=== PATIENT | female | born 2000 | race Caucasian/White ===

== ENCOUNTER 2019-07-08 19:39 | Day surgery (SDC) | payer OTHER ==
[2019-07-08 20:17] VITALS: BP 121/78; TEMP 97.8; BMI 22.6
--- NOTE | 2019-07-09 07:22 | SS ---
DATE OF ADMISSION: 07/08/2019 DATE OF DISCHARGE: 07/08/2019 REGULAR PROVIDER: Shanae Bryson, certified nurse-hyperbaric welder diver. EVALUATING PHYSICIAN: Artie Turpin MD CHIEF COMPLAINT: Contractions at home. HISTORY OF PRESENT ILLNESS: Ms. Solo is a 18-year-old white G1, P0 with an estimated date of confinement of 07/20/2019, who presents complaining of regular contractions at home since noon approximately every 4-8 minutes. She denies ruptured membranes or vaginal bleeding. Her care has been with Shanae Bryson and has been without complications. During her exam last week, she was noted to be 3 cm. PAST MEDICAL HISTORY: None. PAST SURGICAL HISTORY: Tonsillectomy and adenoidectomy as a child. CURRENT MEDICATIONS: vitamins. ALLERGIES: NO KNOWN ALLERGIES. SOCIAL HISTORY: Denies tobacco, alcohol, or drug use. FAMILY HISTORY: Unremarkable. REVIEW OF SYSTEMS: Denies nausea, vomiting, fever, chills, ruptured membranes, or vaginal bleeding. PHYSICAL EXAMINATION: VITAL SIGNS: In triage, her vital signs are stable and she is afebrile. GENERAL: She is pleasant. She is in no acute distress. ABDOMEN: Soft, nontender, and gravid. Examination by the labor nurse shows the cervix to be 3 cm dilated, 75% effaced with the vertex presenting at -2 station. heart rate tracing is stable. Irregular uterine contractions are seen. ASSESSMENT: 1. A 38-week intrauterine . 2. Possible prodromal labor, no evidence of active labor at this time. PLAN: The patient was given labor precautions and these were reviewed with her in detail. She was told to return should her contractions become stronger or if she ruptures her membranes. She understands all the above and is headed home in good condition. Job ID: [id number]
== END 2019-07-08 21:13 | disposition home health service (06) ==
LOC: L&D/OP 19:39
PROVIDERS: ATTEND Student in an Organized Health Care Education/Training Program
DX: O47.1 False labor at or after 37 completed weeks of gestation (principal); Z3A.38 38 weeks gestation of pregnancy

== ENCOUNTER 2019-07-09 00:42 | Inpatient (IN) | payer OTHER ==
[2019-07-09] MEDS ORDERED: hydrALAZINE 20 MG/ML VIAL SLOW IVP PRN ×2 (01:16→12:55)
[2019-07-09] MEDS ORDERED: Lidocaine 1% (PF) 30 ML VIAL SC PRN (01:16)
[2019-07-09] MEDS ORDERED: Acetaminophen/Codeine 30-300mg Tablet PO PRN ×4 (01:16→18:24)
[2019-07-09] MEDS ORDERED: Promethazine HCl 25 MG/ML VIAL IM PRN ×2 (01:16→03:37)
[2019-07-09] MEDS ORDERED: Ibuprofen 800 MG TAB PO PRN (01:16)
[2019-07-09] MEDS ORDERED: Ondansetron PF 4 MG/2 ML Vial IVP PRN ×2 (01:16→03:37)
[2019-07-09] MEDS ORDERED: Butorphanol Tartrate 1 MG/ML VIAL SLOW IVP PRN (01:16)
--- NOTE | 2019-07-09 01:21 | PDOC.LDHP ---
Labor and Delivery H&P Chief complaint: contractions HPI: 18 yo WF returns c/o increasing UCs since noon today. Denies SROM or bleeding. Current gestational age (weeks): 38 Due date: 07/20/19 Dating criteria: last menstrual period Grav: 1 Para: 0 OB History Details: PNC with Adriana Bryson w/o complications. Current complications: none Abnormal US findings: No Past Medical History: None Current medications: pre- vitamins Previous surgical history: other (T&A) Allergies/Adverse Reactions: Allergies Allergy/AdvReac Type Severity Reaction Status Date / Time No Known Allergies Allergy Verified 07/08/19 20:11 Social history: none - Physical Exam Vital signs reviewed and normal: yes General: breathing through contractions Heart: RRR Lungs: CTAB Abdomen: gravid Extremeties: trace edema FHT: category 1 [place] contractions every: q 2-3 mins - Vaginal Exam cm dilated: 4 Effacement: 90% Station: -1 - OB Labs GBS: positive - Assessment L&D Assessment: term patient in labor - Plan Plan: admit to L&D, GBS antibiotic prophylaxis (Adriana ERAZO, [facility] to manage), informed consent obtained
[2019-07-09] MEDS ORDERED: NS w/ Oxytocin 10 units 500 ML IV SCH (01:30)
[2019-07-09] MEDS ORDERED: Lactated Ringer's 1,000 ML IV SCH (01:30)
[2019-07-09] MEDS ORDERED: Penicillin G Potassium 5 MILL.UNITS in Sodium Chloride 0.9% 100 ML IVPB SCH (01:30)
[2019-07-09] MEDS: Lactated Ringer's 1,000 ML IV SCH ×2 (02:07→03:41)
[2019-07-09 02:23] LABS: Hemoglobin 13.8 g/dL (12.0-16.0); Mean Corpuscular HGB CONC 34.7 g/dL (32.0-36.0); Mean Corpuscular Hemoglobin 31.3 pg (25.0-35.0); Mean Corpuscular Volume 90.2 fL (78.0-98.0); Mean Platelet Volume 11.3 fL (7.4-10.4); Platelet Count 166 thou/uL (130-400); Red Blood Cell (RBC) Count 4.42 mill/uL (4.00-5.20); White Blood Cell (WBC) Count 19.1 thou/uL (4.8-10.8)
[2019-07-09 03:01] LABS: HBSAg Index 0.16 S/CO (0-0.99); Hep B Surf Ag Non-Reactive S/CO (NonReactive)
[2019-07-09] MEDS ORDERED: Fentanyl 4 mcg/Bup 0.1% Cadd 100 ML ONE (03:05)
[2019-07-09] MEDS ORDERED: Lactated Ringer's 500 ML IV PRN (03:37)
[2019-07-09] MEDS ORDERED: Naloxone HCl 0.4 mg/ml Vial IVP PRN ×2 (03:37)
[2019-07-09] MEDS ORDERED: diphenhydrAMINE 50 MG/ML VIAL IVP PRN (03:37)
[2019-07-09] MEDS ORDERED: ePHEDrine/0.9% NaCl/PF SYRINGE 50 mg/10 ml SLOW IVP PRN (03:37)
[2019-07-09] MEDS ORDERED: Acetaminophen 325 MG TAB PO PRN (03:37)
[2019-07-09] MEDS ORDERED: Communication Order-Pharmacy FS SCH (03:45)
[2019-07-09] MEDS ORDERED: Fentanyl 4 mcg/Bupivacaine 0.1% Cassette 100 ML EPIDURAL SCH (03:45)
[2019-07-09 04:36] LABS: Syphilis Antibody Nonreactive (Nonreactive); Syphilis Antibody Index 0.07 S/CO (<1.00 Non-Reactive)
[2019-07-09 05:24] VITALS: BMI 22.6
--- NOTE | 2019-07-09 05:33 | PDOC.EVN ---
Event Note - Event Note Event Note: Comfortable s/p epidural. Pen G 2nd dose due now. Last exam- 7 cm. SROMed after admit; clear fluid. FHTs stable Ucs q 2-4 mins. Watch progress.
[2019-07-09] MEDS: Penicillin G 2.5 MILL.units 2.5 MILL.UNITS in Premix Bag 1 BAG IVPB SCH ×3 (05:41→13:39)
[2019-07-09] MEDS ORDERED: Bupivacaine/Epinephrine 0.25% 30 ML VIAL ONE (09:00)
[2019-07-09] MEDS: NS / Oxytocin 40 units/1000ml 1,000 ML IV PRN ×2 (09:47→12:15)
--- NOTE | 2019-07-09 10:24 | PDOC.OPDEL ---
OB Operative/Delivery Note Delivery Dr/Surgeon: Judit Valle Pre-Delivery Diagnosis: active labor Procedure/Post Delivery Dx: spontaneous vaginal delivery Weeks gestation: 38 Anesthesia: epidural - Findings A Sex: female Weight: 2.825 kg - 1 min: 8 - 5 min: 9 - Additional Findings/Plan Placenta delivered: spontaneous Repaired Obstetrical Laceration: 3rd degree (partial) Estimated blood loss: 250 mL Compilations/Other Findings: Delivering Physician: Judit Attending: Tori Procedure: Spontaneous Vaginal Delivery Anesthesia: Epidural EBL: 250 mL Pre-op Diagnosis: 1. Term intrauterine in labor 2. GBS positive Post-op Diagnosis: 1. Term intrauterine , delivered 2. GBS positive, adequately treated Indications: A 18y/o female presents in active labor Delivery Note: This is 18 yo F @ 38 wks who delivered a viable F at 9:25 on 07/09. Following an uneventful intrapartum course, a vigorous F was delivered over an intact perineum in the occipitoanterior position. Anterior Shoulder and then remainder of the body delivered. Nuchal cord x1, reduced. The head was held down and mouth and nares were bulb suctioned. Cord clamped and cut and cord blood collected. Placenta delivered spontaneously, intact with a 3 vessel cord noted. Fundal massage was performed and the fundus was firm. The cervix and vagina were inspected and a 3rd degree perineal laceration was noted and repaired with 2-0 Vicryl suture and 2-0 Chromic in the usual fashion with good approximation and hemostasis. A right vaginal wall laceration was also repaired using 2-0 Vicryl. Infant went to nursery in good condition for routine care. Apgars were 8/9 at 1 & 5 minutes, respectively. Patient tolerated delivery well and went to after routine recovery/ care. Post delivery plan: routine recovery
[2019-07-09] MEDS ORDERED: Adacel (T-DAP) 0.5 ML SYRINGE IM ONE (12:55)
[2019-07-09] MEDS ORDERED: NS / Oxytocin 40 units/1000ml 1,000 ML IV SCH (12:55)
[2019-07-09] MEDS ORDERED: Benzocaine-Menthol 82.5 ML CAN TOP PRN (12:55)
[2019-07-09] MEDS ORDERED: diphenhydrAMINE 25 MG CAP PO PRN (12:55)
[2019-07-09] MEDS ORDERED: Bisacodyl 10 MG SUPP PR PRN (12:55)
[2019-07-09] MEDS ORDERED: Preparation H Ointment 28 GM TUBE PR PRN (12:55)
[2019-07-09] MEDS ORDERED: Milk Of Magnesia 30 ML UDCUP PO PRN (12:55)
[2019-07-09] MEDS ORDERED: Lanolin Ointment 7 GM TUBE TOP PRN (12:55)
[2019-07-09] MEDS: Ibuprofen 800 MG TAB PO SCH ×2 (14:37→22:09)
[2019-07-09] MEDS: Ferrous Sulfate 325 MG TAB PO SCH (16:32)
[2019-07-09] MEDS: Milk Of Magnesia 30 ML UDCUP PO SCH (16:47)
[2019-07-09] MEDS: Docusate Calcium (SURFAK) 240 MG CAP PO SCH (22:09)
[2019-07-10] MEDS: Ibuprofen 800 MG TAB PO SCH ×3 (05:35→21:09)
--- NOTE | 2019-07-10 07:50 | PDOC.PP ---
Post Progress Note Post Day #: 1 Subjective: Patient doing well this AM. No significant overnight events. Patient passing flatus, but has not had BM. She is getting scheduled stool softeners. Lochia similar to period. No complaints. Opting to bottle feed. PO intake tolerated: yes Flatus: yes Ambulation: yes Vital Signs (12 hours) Temp Pulse Resp BP Pulse Ox 07/10/19 05:35 97.9 F 59 L 16 109/57 L 07/10/19 00:30 98.2 F 62 16 109/62 07/09/19 19:57 98.3 F 69 16 116/60 98 Weight Weight 61.689 kg - Physical Examination General: NAD Cardiovascular: no m/r/g, RRR Respiratory: clear to auscultation bilaterally, non-labored breathing Abdominal: + bowel sounds, lochia (minimal), no distention, appropriately TTP Fundus firm & at: at umbilicus Skin: no rash Neurological: no gross focal deficits Psychiatric: A&Ox3, normal affect Result Diagrams: 07/09/19 02:03 Additional Labs: Post Labs Blood Type A POSITIVE 07/09/19 02:03 Hep Bs Antigen Non-Reactive S/CO (NonReactive) 07/09/19 02:03 (1) Term delivered Code(s): O80 - ENCOUNTER FOR FULL-TERM UNCOMPLICATED DELIVERY Status: Acute - Assessment/Plan 18 year old G1 now P1 delivered TAGA F infant on 07/09 via Routine PP Care - Meeting all milestones - Rh + - Serologies pending (rubella, HIV), as records were not available yesterday. Called for records yesterday, will look in chart. If still not present will call for records again or order serologies. - Lochia minimal - Bottle feeding 3rd degree perineal laceration s/p repair - Scheduled stool softeners - Sitz baths - Pain well controlled - Hemostastic, minimal lochia Dispo: Patient doing well and meeting milestones. Plan for d/c home tomorrow.
[2019-07-10] MEDS: Docusate Calcium (SURFAK) 240 MG CAP PO SCH ×2 (09:54→21:08)
[2019-07-10] MEDS: Prenatal Vitamin 1 TAB PO SCH (09:54)
[2019-07-10] MEDS: Polyethylene Glycol 3350 17 GM Packet PO SCH (09:55)
[2019-07-10] MEDS: Milk Of Magnesia 30 ML UDCUP PO SCH (18:08)
[2019-07-10] MEDS: Ferrous Sulfate 325 MG TAB PO SCH (18:08)
[2019-07-11] MEDS: Ibuprofen 800 MG TAB PO SCH (05:58)
--- NOTE | 2019-07-11 07:16 | PDOC.PP ---
Post Progress Note Post Day #: 2 Subjective: Patient doing well. No significant overnight events. Patient tolerating PO, passing flatus, ambulating. PO intake tolerated: yes Flatus: yes Ambulation: yes Vital Signs (12 hours) Temp Pulse Resp BP Pulse Ox 07/10/19 19:20 98.3 F 70 20 128/72 100 Weight Weight 61.689 kg - Physical Examination General: NAD Cardiovascular: RRR Respiratory: non-labored breathing Abdominal: + bowel sounds, lochia (minimal), no distention, appropriately TTP Fundus firm & at: below umbilicus Skin: no rash Neurological: no gross focal deficits Psychiatric: A&Ox3, normal affect Result Diagrams: 07/09/19 02:03 Additional Labs: Post Labs Blood Type A POSITIVE 07/09/19 02:03 Hep Bs Antigen Non-Reactive S/CO (NonReactive) 07/09/19 02:03 (1) Term delivered Code(s): O80 - ENCOUNTER FOR FULL-TERM UNCOMPLICATED DELIVERY Status: Acute - Assessment/Plan 18 year old G1 now P1 delivered TAGA F infant on 07/09 via Routine PP Care - Meeting all milestones - Rh + - Lochia minimal - Bottle feeding 3rd degree perineal laceration s/p repair - Scheduled stool softeners; has had several soft stools - Sitz baths - Pain well controlled - Hemostastic, minimal lochia Dispo: D/c home today.
[2019-07-11] MEDS: Ferrous Sulfate 325 MG TAB PO SCH (09:07)
[2019-07-11] MEDS: Polyethylene Glycol 3350 17 GM Packet PO SCH (09:08)
[2019-07-11] MEDS: Prenatal Vitamin 1 TAB PO SCH (09:08)
[2019-07-11] MEDS: Docusate Calcium (SURFAK) 240 MG CAP PO SCH (09:08)
[2019-07-11 11:39] VITALS: BP 119/62; TEMP 98.2
== END 2019-07-11 11:52 | disposition home or self-care (01) | DRG 768 ==
LOC: L&D/OP 00:42 → L&D 01:34 → 3SW 13:10
PROVIDERS: ADMIT Student in an Organized Health Care Education/Training Program; ATTEND Student in an Organized Health Care Education/Training Program
PROC: 10E0XZZ Delivery of Products of Conception, External Approach (ICD-10-PCS; principal; 2019-07-09)
PROC: 0DQR0ZZ Repair Anal Sphincter, Open Approach (ICD-10-PCS; 2019-07-09)
DX: O99.824 Streptococcus B carrier state complicating childbirth (principal); Z37.0 Single live birth; Z3A.38 38 weeks gestation of pregnancy; O70.20 Third degree perineal laceration during delivery, unspecified; O69.81X0 Labor and delivery complicated by cord around neck, without compression, not applicable or unspecified
CPT/HCPCS: 36415; 51702; 85027; 86780; 86850; 86900; 86901; 87340; 99285; J0595; J2405; J2540; J3490